=== PATIENT | female | born 1980 | race Caucasian/White ===

== ENCOUNTER 2017-08-15 08:42 | Day surgery (SDC) | payer OTHER ==
[~2017-08-15 08:42] MED LIST: Buffered Lidocaine 0.9% SYRIN* 5 ML/SYR SYRINGE INTRADERM ONE; Dexamethasone IV* 4 MG/ML 1 ML (4 MG) IV SLOW PU ONE; Famotidine IV* 10 MG/ML 2 ML (20 mg) IV ONE; Ondansetron ODT TAB* 4 MG PO ONE; Scopolamine 1.5 mg* PATCH TRANSDERM ONE
[2017-08-15] MEDS ORDERED: ceFAZolin 2 GM PREMIX (*) 2 GM/50 ML BAG IVPB ONE (08:58)
[2017-08-15] MEDS ORDERED: Scopolamine 1.5 mg* PATCH ONE (08:58)
[2017-08-15] MEDS ORDERED: Dexamethasone IV* 4 MG/ML 1 ML (4 MG) ONE (08:59)
[2017-08-15] MEDS ORDERED: Famotidine IV* 10 MG/ML 2 ML (20 mg) ONE (08:59)
[2017-08-15] MEDS ORDERED: Ondansetron ODT TAB* 4 MG ONE (09:21)
[2017-08-15] MEDS ORDERED: fentaNYL* 50 MCG/ML 5 ML VIAL (250 MCG VIAL) ONE (09:31)
[2017-08-15] MEDS ORDERED: Midazolam* 1 MG/ML 5 ML VIAL (5 MG) ONE (09:31)
[2017-08-15] MEDS ORDERED: Ketorolac INJ* 30 MG/ML 1 ML VIAL ONE (09:57)
[2017-08-15] MEDS ORDERED: Propofol* 10 MG/ML 20 ML BTL IV PUSH ONE (09:57)
[2017-08-15] MEDS ORDERED: Lidocaine 2% PF * 5 ML VIAL ONE (09:57)
[2017-08-15] MEDS ORDERED: Lidocain 1% EPI 1:100,000 * 30 ML MDV ONE (10:05)
[2017-08-15] MEDS ORDERED: Bupivacaine 0.25% SDV* 30 ML ONE (10:05)
[2017-08-15] MEDS ORDERED: DiMENhydriNATE IV* 50 MG/ML VIAL IV PUSH PRN (10:45)
[2017-08-15] MEDS ORDERED: Ondansetron INJ* 2 MG/ML VIAL IV PRN (10:45)
[2017-08-15] MEDS ORDERED: oxyCODONE/Acetamin 5/325 MG* TAB PO PRN (10:45)
[2017-08-15] MEDS ORDERED: fentaNYL* 50 MCG/ML 2 ML VIAL (100 MCG VIAL) IV PRN (10:45)
[2017-08-15] MEDS ORDERED: HYDROmorphone INJ* 1 MG/ML CARPUJECT SYRINGE IV PRN (10:45)
[2017-08-15] MEDS ORDERED: Naloxone* 0.4 MG/ML 1 ML VIAL IV PRN (10:45)
[2017-08-15] MEDS ORDERED: fentaNYL* 50 MCG/ML 2 ML VIAL (100 MCG VIAL) ONE (12:23)
[2017-08-15] MEDS ORDERED: oxyCODONE/Acetamin 5/325 MG* TAB ONE (12:54)
[2017-08-15 13:05] VITALS: BP 130/65
--- NOTE | 2017-08-16 08:55 | OP ---
CC: PCP, Brock Hinton MD * DATE OF OPERATION: 08/15/17 - [facility] DATE OF : 82 SURGEON: Tonio Walden MD QUENCHER OPERATOR: JAMEY Anderson. An casting assistant was needed for the entirety of the case to help with positioning, retraction, and was utilized throughout all portions of the case. ANESTHESIOLOGIST: Brock Will MD ANESTHESIA: General. PRE-OP DIAGNOSES: Left knee recurrent patellar dislocation with suspected loose body and large effusion. POST-OP DIAGNOSES: Left knee recurrent patellar dislocation with suspected loose body and large effusion. OPERATIVE PROCEDURE: 1. Left knee arthroscopy with synovectomy, chondroplasty, partial lateral meniscectomy, and revision lateral release. 2. Distal tibial tubercle osteotomy with anteromedialization. INDICATIONS: Kailey Nickerson is a 37-year-old female, who has had multiple left knee dislocations that began around 20 years ago. She has recently had one early June. She has limits in her range of motion, pain with ambulating. She presented with an MRI. Risks and benefits of surgery were discussed at length that included but are not limited to bleeding, infection, damage to nerves, vessels, surrounding structures, wound nonhealing, persistent pain, scarring, stiffness, risk of anesthesia, risk of compartment syndrome, risk of DVT, need for further surgery, incomplete relief of symptoms. She has a previous history of a lateral release and medial plication that failed. Discussion with the patient was made that because she had a previous surgery, an MPFL reconstruction would be an option, but it is slightly more technically challenging due to disruption of the planes. Also, MRI demonstrated TT-TG that was borderline and I did say that often this is taken care of quite well with just a tibial tubercle osteotomy. We did talk about how this may still re- dislocate and she may need an MPFL down the road. She does not have any evidence of parker on her x-rays, which demonstrated a CD of 1. TOURNIQUET TIME: 0 minutes. IMPLANTS USED: Two 4.5 fully threaded appropriate length screws. COMPLICATIONS: None. DISPOSITION: Stable with soft compressible compartments. DESCRIPTION OF PROCEDURE: The patient was greeted in the preoperative area by the attending surgeon. Correct extremity was marked and consent was confirmed. The patient was brought back to the operating suite where she was placed in the supine position on the operating table. She then underwent general anesthesia with LMA intubation, after which she was appropriately positioned in the bed. An unsterile tourniquet was placed high on the proximal thigh. A lateral post was positioned. A bump was placed under the ipsilateral buttock. The examination was done. She was found to have full range of motion. There was an effusion that was present that was moderate size. She had 2+ to 3 lateral glide. The left leg was then prepped and draped in the usual sterile fashion beginning with chlorhexidine soap, scrub, and alcohol wipe, and a final prep with ChloraPrep. After appropriate surgical pause indicating site, side, procedure, administration of antibiotics, the knee was intra-articularly injected with 1% lidocaine with epi. The anterolateral portal was made sharply with an 11 blade. Scope was introduced into the joint. There was abundant erythema and inflammation. There was evidence of hemosiderin deposits. The undersurface of the patella had an area of an acute injury where the patellofemoral MPFL inserted, although there was small chondral injury, although it was trying to heal back. There was some chondrosis of the patellofemoral joint. This was debrided back using the shaver. The trochlea had grade 0 to 1 changes. The medial and lateral gutters were intact. The medial meniscus was intact. The medial femoral condyle had grade 0 to 1 changes, medial plateau grade 0 to 1 changes. ACL and PCL were intact. The lateral compartment was examined. There was fraying and tearing of the lateral meniscus with an unstable flap on the undersurface. This was debrided back using the shaver. There was softening of the lateral plateau as well as grade 2 changes. This was debrided back using the shaver. Abundant synovitis was present. This was debrided back and electrocautery device was used to help maintain hemostasis. The patella was obviously subluxed quite a bit laterally. There was shallow trochlea, which also predisposed the patella with patellar dislocations. At this point, decision was made to proceed with a tibial tubercle osteotomy. The preoperative exam demonstrated no firm endpoint of the patella. The wounds were copiously irrigated and the knee was evacuated of all fluid. At this point , a 15 blade was used to make an incision in line with the tubercle. The soft tissues were carefully dissected. The anterolateral compartment was then carefully released with cuff of tissue to try to repair this back. The compartments were soft and compressible prior to surgery. The Hughes elevator was then used to gently expose the lateral aspect of the tibia. The medial aspect of the tibia was also exposed carefully, after which the edges of the patellar tendon were identified and then protected throughout the entirety of this case. Once both sides were exposed, 2 K-wires were placed in parallel fashion around 40-degree angle to allow for anteriorization as well as medialization of the tubercle to offload the patella. Once it was confirmed that the trajectory was correct, the saw blade was then used to perform the osteotomy. Approximately, an 8-cm osteotomy was then done with care to try to chamfer it off towards the end and to keep the inferior cortex intact. Once this was done, a small quarter-inch osteotome was then used to complete the cut proximally with care to protect the patellar tendon. Once the osteotomy was completed, the bony bridge was then gently loosened and translated medially. No need for distalization as there was no parker. This was provisionally secured with 2 K-wires. The knee was taken through range of motion and found to have full range of motion. The patella was sitting more centrally. The glide was assessed at 0 and 30 degrees and found to have a firm endpoint. The scope was then positioned into the knee. After the hematoma was removed, it was found to be sitting more central, although there was some overlap when there was a large effusion present laterally. Decision was made to assess after fixation and then possibly do a revision lateral release with care to not damage the structures. The K-wires were exchanged for 4.5- mm screws that were placed in the in the lag fashion. This helped to secure and compress the bone. Images were obtained to ensure that they were not too prominent and final images were obtained with a mini C-arm. The scope was then brought back into the joint after the bony piece was secured and a small revision lateral release was then done using the electrocautery device. The wounds were then copiously irrigated. The patella was found to track appropriately. There was a good endpoint at 0 and 30 degrees with medial and lateral glide. There was no evidence of medial instability either. The wounds were copiously irrigated with sterile saline. The portals were closed with 3-0 nylon. The fascia was closed in the anterior and lateral compartment. The compartments were assessed and found to be soft and compressible. The wounds were then copiously irrigated. The patellar tendon was found to be intact throughout the entirety of the case. The wounds were then irrigated again. The skin was closed in layers with 2-0 Vicryl and richardson. The knee was intraarticularly and the wounds were injected with 0.25% Marcaine plain. Sterile dressings were applied. A Cryo/Cuff and a hinged knee brace were placed. She was awoken from anesthesia and transferred to PACU in stable condition. POSTOPERATIVE PLAN: She will be weightbearing as tolerated. She will be kept in extension for approximately 6 weeks. She will be discharged on pain medication. DVT prophylaxis was considered, but deferred due to no previous personal or family history. We will monitor her closely. She will call if she has any signs or symptoms or concerns for compartment syndrome. [id number]/[facility] #: [id number] SHRADDHA
--- NOTE | 2017-08-16 15:25 | RAD ---
INDICATION: Left knee, M 25.562 COMPARISONS: July 27, 2017 TECHNIQUE: Fluoroscopy was provided for a surgical procedure. Total fluoroscopy time is: 16 seconds FINDINGS: Spot images demonstrate an anterior tibial osteotomy. IMPRESSION: FLUOROSCOPY WAS PROVIDED FOR A SURGICAL PROCEDURE CPT II Codes: G9500
== END 2017-08-15 13:30 | disposition home or self-care (01) ==
LOC: OREAST 08:42
PROVIDERS: ATTEND Orthopaedic Surgery
DX: S83.095A Other dislocation of left patella, initial encounter (principal); M25.462 Effusion, left knee; M25.562 Pain in left knee; I10 Essential (primary) hypertension; J30.2 Other seasonal allergic rhinitis; F17.210 Nicotine dependence, cigarettes, uncomplicated; Z88.8 Allergy status to other drugs, medicaments and biological substances; X58.XXXA Exposure to other specified factors, initial encounter; Y92.9 Unspecified place or not applicable
CPT/HCPCS: 76000; 81025; 88304; A9270-GY; C1713; C1776; J0690; J1100; J1885; J2250; J2704; J3010

== ENCOUNTER 2017-08-25 14:19 | Emergency (ER) | payer OTHER ==
[2017-08-25 15:13] LABS: INR 0.89 (0.77-1.02)
[2017-08-25 15:17] LABS: ABS Basophils 0.1 10^3/ul (0-0.2); ABS Eosinophils 0.1 10^3/ul (0-0.6); ABS Lymphocytes 2.8 10^3/ul (1.0-4.8); ABS Monocytes 0.8 10^3/ul (0-0.8); ABS Nucleated RBC 0 10^3/ul; Eosinophil % 1.4 % (0-6); Hematocrit 35 % (35-47); Hemoglobin 11.8 g/dl (12.0-16.0); Lymphocyte % 28.5 % (25-47); Mean Corpuscular HGB Conc 34 g/dl (31-36); Mean Corpuscular Hemoglobin 29 pg (27-31); Mean Corpuscular Volume 86 fL (80-97); Nucleated Red Blood Cells % 0.1; Platelet Count 357 10^3/ul (150-450); Red Blood Count 4.01 10^6/ul (4.00-5.40); Red Cell Distribution Width 13 % (10.5-15); White Blood Count 9.9 10^3/ul (3.5-10.8)
--- NOTE | 2017-08-25 15:35 | ED ---
Lower Extremity - HPI Summary HPI Summary: 37-year-old female presents with a blood clot in left leg. She had surgery week ago by Dr Walden. She states 2 days ago she developed increased edema to her left leg. She states that she developed left calf. She denies any chest pain or shortness breath. This area has never had this pain before. She had ultrasound done today confirms a DVT in her peroneal vein. She is not on control. No recent travel. She is not a smoker. Has no family history of blood clots. No new injury. - History of Current Complaint Chief Complaint: EDExtremityLower Stated Complaint: POS. BLOOD CLOT IN LT LEG Time Seen by Provider: 08/25/17 14:35 Hx Last Menstrual Period: NOW Pain Intensity: 7 - Allergies/Home Medications Allergies/Adverse Reactions: Allergies Allergy/AdvReac Type Severity Reaction Status Date / Time hydrocodone Allergy Nausea And Verified 08/25/17 14:32 Vomiting Hay Fever Allergy Sneezing Uncoded 08/25/17 14:32 Home Medications: Home Medications Atenolol TAB* [Tenormin TAB* 50 MG] 50 mg PO DAILY 08/25/17 [History Confirmed 08/25/17] Methylphenidate TAB* [Ritalin TAB*] 10 mg PO DAILY 08/25/17 [History Confirmed 08/25/17] PMH/Surg Hx/FS Hx/Imm Hx Endocrine/Hematology History: Reports: Hx Anemia - in high school Denies: Hx Diabetes, Hx Thyroid Disease Cardiovascular History: Reports: Hx Hypertension - on medication Denies: Hx Pacemaker/ICD, Other Cardiovascular Problems/Disorders Respiratory History: Reports: Other Respiratory Problems/Disorders - Post nasal drip caused cough in past GI History: Denies: Hx Gastroesophageal Reflux Disease, Other GI Disorders History: Denies: Hx Renal Disease, Other Problems/Disorders Musculoskeletal History: Reports: Hx Arthritis - bilateral knees and ankles, Other Musculoskeletal History - dislocated left patella-07/28/17,shoulder pain from crutches Sensory History: Reports: Hx Contacts or Glasses - Glasses Denies: Hx Hearing Aid Opthamlomology History: Reports: Hx Contacts or Glasses - Glasses Neurological History: Reports: Hx Migraine - history of prior to bp controlled with medication Denies: Other Neuro Impairments/Disorders Psychiatric History: Reports: Hx Depression - treated with medication in past Denies: Hx Panic Disorder - Surgical History Surgery Procedure, Year, and Place: 1997 LT KNEE - VMO repair Hx Anesthesia Reactions: Yes - nauseated after surgery, threw up for 3 days, also on vicodin at the time Infectious Disease History: No Infectious Disease History: Reports: Hx Hepatitis - states she has hepatitis antibiodies Denies: Traveled Outside the [place] in Last 30 Days - Social History Alcohol Use: Occasionally Substance Use Type: Reports: None Smoking Status (MU): Former Smoker Type: Cigarettes Amount Used/How Often: 1/2-3/4 ppd for 20 years on and off Review of Systems Negative: Fever Negative: Chest Pain Negative: Shortness Of Breath Positive: Edema - left leg edema All Other Systems Reviewed And Are Negative: Yes Physical Exam Triage Information Reviewed: Yes Vital Signs On Initial Exam: Initial Vitals Temp Pulse Resp BP Pulse Ox 98 F 73 20 166/84 98 08/25/17 14:25 08/25/17 14:25 08/25/17 14:25 08/25/17 14:25 08/25/17 14:25 Vital Signs Reviewed: Yes Appearance: Positive: Well-Appearing Skin: Positive: Warm, Dry Head/Face: Positive: Normal Head/Face Inspection Eyes: Positive: Normal, Conjunctiva Clear ENT: Positive: Pharynx normal Respiratory/Lung Sounds: Positive: Clear to Auscultation, Breath Sounds Present Cardiovascular: Positive: Normal, RRR Musculoskeletal: Positive: Strength/ROM Intact - toes, Other - brace on left leg , edema to left ankle seen, sensation grossly intact, good pulses Neurological: Positive: Normal Psychiatric: Positive: Normal Diagnostics - Vital Signs Vital Signs Temp Pulse Resp BP Pulse Ox 08/25/17 15:15 74 158/93 97 08/25/17 15:00 74 97 08/25/17 14:46 71 96 08/25/17 14:45 69 146/74 97 08/25/17 14:25 98 F 73 20 166/84 98 - Laboratory Lab Results: Lab Results 08/25/17 08/25/17 08/25/17 Range/Units 14:51 14:51 15:10 WBC 9.9 (3.5-10.8) 10^3/ul RBC 4.01 (4.00-5.40) 10^6/ul Hgb 11.8 L (12.0-16.0) g/dl Hct 35 (35-47) % MCV 86 (80-97) fL MCH 29 (27-31) pg MCHC 34 (31-36) g/dl RDW 13 (10.5-15) % Plt Count 357 (150-450) 10^3/ul MPV 7.0 L (7.4-10.4) um3 Neut % (Auto) 60.5 (38-83) % Lymph % (Auto) 28.5 (25-47) % [place] % (Auto) 8.5 H (0-7) % Eos % (Auto) 1.4 (0-6) % Baso % (Auto) 1.1 (0-2) % Absolute Neuts (auto) 6.0 (1.5-7.7) 10^3/ul Absolute Lymphs (auto) 2.8 (1.0-4.8) 10^3/ul Absolute Monos (auto) 0.8 (0-0.8) 10^3/ul Absolute Eos (auto) 0.1 (0-0.6) 10^3/ul Absolute Basos (auto) 0.1 (0-0.2) 10^3/ul Absolute Nucleated RBC 0 10^3/ul Nucleated RBC % 0.1 INR (Anticoag Therapy) 0.89 (0.77-1.02) APTT 31.1 (26.0-36.3) seconds Sodium 136 (135-145) mmol/L Potassium 3.9 (3.5-5.0) mmol/L Chloride 103 (101-111) mmol/L Carbon Dioxide 23 (22-32) mmol/L Anion Gap 10 (2-11) mmol/L BUN 14 (6-24) mg/dL Creatinine 0.64 (0.51-0.95) mg/dL Est GFR ( Amer) 127.0 (>60) Est GFR (Non-Af Amer) 105.0 (>60) BUN/Creatinine Ratio 21.9 H (8-20) Glucose 85 (70-100) mg/dL Calcium 10.1 (8.6-10.3) mg/dL Total Bilirubin 0.40 (0.2-1.0) mg/dL AST 21 (13-39) U/L ALT 37 (7-52) U/L Alkaline Phosphatase 40 (34-104) U/L Total Protein 7.7 (6.4-8.9) g/dL Albumin 4.3 (3.2-5.2) g/dL Globulin 3.4 (2-4) g/dL Albumin/Globulin Ratio 1.3 (1-3) Result Diagrams: 08/25/17 15:10 08/25/17 14:51 Lab Statement: Any lab studies that have been ordered have been reviewed, and results considered in the medical decision making process. Lower Extremity Course/Dx - Course Course Of Treatment: 37-year-old female presents with a blood clot in left leg. She had surgery week ago by Dr Walden. She states 2 days ago she developed increased edema to her left leg. She states that she developed left calf. She denies any chest pain or shortness breath. This area has never had this pain before. She had ultrasound done today confirms a DVT in her peroneal vein. She is not on control. No recent travel. She is not a smoker. Has no family history of blood clots. No new injury. On exam lungs clear to auscultation. Heart regular rate and rhythm. Edema noted to left leg. Has brace with Guille on left leg. Good pulses. Neurovascularly intact. Labs within normal limits. Discuss options with patient xarelto vs eliquis vs heparin to warfarin. Patient did some research and decided to do heparin to warfarin. Started lovenox today and will have start the warfarin tomorrow. We'll have follow-up with primary to increase the dose of warfarin and to start checking INR. warned signs to return to ED such as chest pain or shortness breath. Patient understands and agrees the plan. - Diagnoses Differential Diagnosis/HQI/PQRI: Positive: DVT, Sprain, Strain Provider Diagnoses: Left leg DVT Discharge - Sign-Out/Discharge Documenting (check all that apply): Discharge/Admit/Transfer - Discharge Plan Condition: Good Disposition: HOME Prescriptions: Enoxaparin(*) [Lovenox(*)] 100 mg SUBCUT Q12HR #20 syringe Warfarin TAB(*) [Coumadin TAB(*)] 2 mg PO DAILY #8 tab Patient Education Materials: Deep Vein Thrombosis (ED) Referrals: Brock Hinton MD [Primary Care Provider] - [facility] [Outside] Additional Instructions: take lovenox 100mg every 12 hours start warfarin tomorrow, take once a day until seen by primary and dose can be adjusted if can not get into primary next week referral given for [facility] who should be able to see you temporally Do not take ibuprofen or ASA Return to ED if develop any shortness of breath or chest pain or any new or worsening symptoms - Billing Disposition and Condition Condition: GOOD Disposition: Home
[2017-08-25] MEDS ORDERED: Enoxaparin(*) 100 MG/ML SYR SUBCUT ONE (15:46)
[2017-08-25 16:00] VITALS: BP 111/73
== END 2017-08-25 16:08 | disposition home or self-care (01) ==
LOC: ED 14:19
DX: I82.402 Acute embolism and thrombosis of unspecified deep veins of left lower extremity (principal); R60.0 Localized edema; Z87.891 Personal history of nicotine dependence; I10 Essential (primary) hypertension
CPT/HCPCS: 36415; 80053; 85025; 85610; 85730; 99282; 99283; J1650

== ENCOUNTER 2022-10-07 11:02 | Observation (INO) ==
[2022-10-07] MEDS ORDERED: Naloxone 0.4 mg VIAL 0.4 mg/ml 1 ml VIAL IV PUSH PRN (11:22)
[2022-10-07] MEDS ORDERED: Ondansetron 4 mg VIAL 2 MG/ML 2 ml VIAL ONE (11:55)
[2022-10-07] MEDS ORDERED: oxyCODONE SR 10 mg TAB ONE (11:55)
[2022-10-07] MEDS ORDERED: Scopolamine 1 mg/72hr PATCH ONE (11:56)
[2022-10-07] MEDS ORDERED: Clindamycin 900 MG/50 **NS BAG 900 MG/50 ML BAG IV ONE (12:00)
[2022-10-07 12:18] LABS: ABS Basophils 0.1 10^3/uL (0.0-0.1); ABS Eosinophils 0.1 10^3/uL (0.0-0.5); ABS Lymphocytes 2.8 10^3/uL (1.0-4.8); ABS Monocytes 0.7 10^3/uL (0.0-0.9); ABS Neutrophils 5.2 10^3/uL (1.5-7.6); ABS Nucleated RBC 0.01 10^3/ul; Eosinophil % 1.4 %; Hematocrit 39.4 % (35-45); Hemoglobin 13.8 g/dL (11.5-14.3); Lymphocyte % 31.9 %; Mean Corpuscular Hemoglobin 30.3 pg (27-33); Mean Corpuscular Hgb Conc 35.1 g/dL (31-36); Mean Corpuscular Volume 86.3 fL (80-97); Mean Platelet Volume 7.3 fL (7.5-11.2); Nucleated Red Blood Cells % 0.1 /100 WBC (0.0-0.4); Platelet Count 345 10^3/uL (150-450); Red Blood Count 4.57 10^6/uL (3.63-4.92); Red Cell Distribution Width 13.1 % (12-17); White Blood Count 8.9 10^3/uL (3.8-11.8)
[2022-10-07 12:29] LABS: Activated Partial Thrombo Time 32.3 seconds (26.0-38.0); INR 1.02 (0.88-1.18)
[2022-10-07] MEDS ORDERED: Heparin 2 UNITS/ML IVPREMIX 2,000 UNIT/1,000 ML BAG IV ONE (12:35)
[2022-10-07] MEDS ORDERED: Lidocaine 1% VIAL 10 MG/ML VIAL 30 ML ONE (12:35)
[2022-10-07] MEDS ORDERED: Iohexol 350 (CONTRAST) 100 ML PAK IV ONE (12:35)
[2022-10-07] MEDS ORDERED: Heparin 2 UNITS/ML IVPREMIX 1,000 UNIT/500 ML BAG IV ONE (12:40)
[2022-10-07 12:41] LABS: Anion Gap 12 mmol/L (2-16); Blood Urea Nitrogen 14 mg/dL (6-24); CO2 Carbon Dioxide 24 mmol/L (22-32); Calcium 9.8 mg/dL (8.6-10.3); Chloride 98 mmol/L (101-111); Creatinine, Serum 0.67 mg/dL (0.51-0.95); Glucose 130 mg/dL (70-100); Potassium 3.9 mmol/L (3.5-5.0); Sodium 134 mmol/L (135-145); eGFR CKD-EPI 112.5 (>60)
[2022-10-07 12:48] LABS: HCG Pregnancy < 0.60 mIU/mL
[2022-10-07] MEDS ORDERED: nitroGLYCERIN DRIP 25,000 MCG/250 ML BTL ONE (13:03)
[2022-10-07] MEDS ORDERED: Midazolam 5 mg/5 ml VIAL 1 mg/ml 5 ml VIAL (5 mg) ONE (13:03)
[2022-10-07] MEDS ORDERED: fentaNYL 100 mcg/2 ml 50 MCG/ML VIAL ONE ×2 (13:03→13:55)
[2022-10-07] MEDS ORDERED: HYDROmorphone PCA 20 MG/20 ML PCA.SYRING PCA SCH (14:00)
[2022-10-07] MEDS ORDERED: HYDROmorphone 0.5 MG/0.5 ML SYRINGE ONE (14:11)
[2022-10-07] MEDS: NS 0.9% 1,000 ML IV SCH ×3 (14:50→23:37)
[2022-10-07] MEDS ORDERED: Lactated Ringers 1000 ml BAG 500 ML IV ONE (14:50)
[2022-10-07] MEDS ORDERED: Prochlorperazine 5 mg/ml 2 ml VIAL (10 mg) ONE (16:19)
[2022-10-07] MEDS ORDERED: LORazepam 2 mg VIAL 1 ml IV PUSH ONE (16:47)
[2022-10-07] MEDS ORDERED: Lorazepam PYXIS KEY PRN (16:53)
[2022-10-07] MEDS ORDERED: LORazepam 2 mg VIAL 1 ml ONE (16:54)
[2022-10-07] MEDS ORDERED: HYDROmorphone 1 MG/1 ML SYRINGE ONE (16:54)
[2022-10-07] MEDS ORDERED: HYDROmorphone 1 MG/1 ML SYRINGE IV ONE (17:00)
[2022-10-07] MEDS ORDERED: Prochlorperazine 5 mg/ml 2 ml VIAL (10 mg) IV ONE (17:00)
[2022-10-07] MEDS: Ondansetron 4 mg VIAL 2 MG/ML 2 ml VIAL IV SCH (20:01)
[2022-10-08] MEDS: Ondansetron 4 mg VIAL 2 MG/ML 2 ml VIAL IV SCH ×2 (01:05→07:46)
[2022-10-08] MEDS: NS 0.9% 1,000 ML IV SCH (04:42)
[2022-10-08] MEDS ORDERED: HYDROcodone/ACETAMIN 5/325 mg TAB PO PRN (08:40)
[2022-10-08] MEDS ORDERED: Amphetamine/Dextroam ER 10(NF) 10 mg CAP.ER PO SCH (09:00)
[2022-10-08] MEDS ORDERED: Ketorolac 10 mg TAB (NF) PO SCH (09:00)
[2022-10-08 09:59] VITALS: BP 144/83
== END 2022-10-08 11:50 | disposition home or self-care (01) ==
LOC: CHICATH 11:02 → SSU 11:02
PROVIDERS: ADMIT Radiology Diagnostic Radiology; ATTEND Student in an Organized Health Care Education/Training Program
PROC: ANG.UFE (2022-10-07 12:10)